=== PATIENT | female | born 1970 | race Two or more races ===

== ENCOUNTER 2020-04-16 10:19 | Outpatient (CLI) | payer BC | END 2020-04-16 23:59 | disposition home or self-care (01) | LOC: MSC 10:19 | PROVIDERS: ATTEND Internal Medicine | DX: J30.2 Other seasonal allergic rhinitis (principal); B37.9 Candidiasis, unspecified; Z86.19 Personal history of other infectious and parasitic diseases; Z79.899 Other long term (current) drug therapy ==